=== PATIENT | female | born 1990 | race Two or more races ===

== ENCOUNTER 2017-05-15 01:19 | Emergency (ER) | payer MEDICAID ==
--- NOTE | 2017-05-15 01:43 | ED Physician Chart ---
Chief Complaint/HPI - Patient Information Date Seen:: 05/15/17 Time Seen:: 01:35 Chief Complaint:: Abdominal pain for 2 days. 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 Pain is characterized as crampy, intermittent and overall localized. No known precipitating, aggravating, or relieving factors. No fever. Pt has had intermittent N/V with vomitus consists of gastric content. No hematemesis. Last BM about 2 days ago which was normal in color/consistency. No hematochezia or melena. Pt denies any illicit drug use. Pt states she had previous marijuana use but has not had it for about 3 months. Denies ingestion of greasy/spicy food. No alcohol, caffeine, ASA, NSAID, or tobacco use. Allergies:: Allergies Allergy/AdvReac Type Severity Reaction Status Date / Time ketorolac tromethamine Allergy ITCHINESS Verified 07/22/16 03:42 [From Toradol] Vitals:: Vital Signs - 8 hr 05/15/17 01:20 Temp 98.3 F HR 120 RR 19 BP 147/107 O2 Sat % 95 Historian:: Patient Family MD/PCP:: Dr. Austin LMP:: 04/22/17 Review:: Nurse's Note Reviewed Review of Systems - Review of Systems General/Constitutional: No fever, No weight loss, No weakness, No diaphoresis, No edema, No loss of appetite Skin: No skin lesions, No rash, No bruising Head: No headache, No light-headedness Eyes: No loss of vision, No pain ENT: No earache, No nasal drainage, No sore throat, No tinnitus Neck: No neck pain, No swelling, No stiffness, No mass noted Cardio Vascular: No chest pain, No palpitations Pulmonary: No SOB, No cough, No wheezing GI: Nausea, Vomiting, No diarrhea, Pain, No melena, No hematochezia, No hematemesis G/U: Dysuria, No frequency, No hematuria Alteration Worker: No vaginal discharge, No abnormal vaginal bleed Musculoskeletal: Bone or joint pain Endocrine: No polyuria, No polydipsia Psychiatric: No prior psych history Hematopoietic: No bruising, No lymphadenopathy Allergic/Immuno: No urticaria, No angioedema Neurological: No syncope, No focal symptoms, No weakness, No paresthesia, No headache, No dizziness, No confusion Past Medical History - Past Medical History Past Medical History: No significant medical hx Family History: HTN (MGM), Cancer (MGM) Social History: Non Smoker, No Alcohol, No Drug Use, Single, Other (lives with her mother.) Surgical History: Cholecystectomy (laparoscopic cholecystectomy in 2010) Psychiatricy History: None Medication: None Family Medical History - Family Member Mother History Unknown: Yes Physical Exam - Physical Examination General/Constitutional: Awake, Well-developed, well-nourished, Alert, GCS 15, Non-toxic appearing, Ambulatory Other Gen/Cons comments:: Breathes comfortably and speaks clearly. Pt appears to be in distress due to abdominal pain. Head: Atraumatic Eyes: Lids, conjuctiva normal, PERRL, EOMI Other Eyes comments:: anicteric sclera. Skin: Nl inspection, No rash, No skin lesions, No ecchymosis, No lymphadenopathy ENMT: External ears, nose nl, Nasal exam nl, Oropharynx nl Neck: Nontender, Full ROM w/o pain, No nuchal rigidity, No mass, No stridor Respiratory: Nl effort/Exclusion, Clear to Auscultation, No Wheeze/Rhonchi/Rales Cardio Vascular: RRR ( with VR 92), No murmur, gallop, rubs GI: No organomegaly, No hernia, Normal BS's, Nondistended, No mass/bruits, No McBurney tenderness Other GI comments:: Tenderness at LUQ and epigastric region. No R/G. Negative Velasquez's, Tomi's, or Larson Fine's signs. : No CVA tenderness Other comments:: Pt declined pelvic and rectal exams despite indications, related benefits and risks have been explained. Pt states that she already had a full GI work up recently, including endoscopies. Pt prefers to be followed with PCP Dr. Austin for further evaluation/treatment. Extremities: No tenderness or effusion, Full ROM, normal strength in all extremities, No edema, Normal digits & nails Neuro/Psych: Alert/oriented (oriented x 3.), Normal gait, No focal deficits Labs/Radiology/EKG Results - Lab Results Results: Laboratory Tests 05/15/17 05/15/17 05/15/17 01:25 01:25 01:25 WBC RBC Hgb Hct MCV MCH MCHC Differential RDW Plt Count MPV Neutrophils % Lymphocytes % Monocytes % Eosinophils % Basophils % PT INR PTT (Actin FS) Sodium Potassium Chloride Carbon Dioxide Anion Gap BUN Creatinine Est GFR ( Amer) Est GFR (Non-Af Amer) BUN/Creatinine Ratio Glucose Calcium Total Bilirubin AST ALT Alkaline Phosphatase Total Protein Albumin Globulin Albumin/Globulin Ratio Amylase Lipase Urine Source RANDOM Urine Color YELLOW Urine Clarity CLEAR Urine pH 6.0 Ur Specific Rugby 1.020 Urine Protein NEGATIVE Urine Glucose (UA) NEGATIVE Urine Ketones NEGATIVE Urine Blood NEGATIVE Urine Nitrate NEGATIVE Urine Bilirubin NEGATIVE Urine Urobilinogen 0.2 Ur Leukocyte Esterase NEGATIVE Urine RBC 0-2 Urine WBC 0-2 Ur Epithelial Cells FEW Urine Bacteria FEW Urine Test NEGATIVE Urine Opiates Screen NEGATIVE Urine Methadone Screen NEGATIVE Ur Barbiturates Screen NEGATIVE Ur Tricyclics Screen NEGATIVE Ur Phencyclidine Scrn NEGATIVE Amphetamines Screen NEGATIVE U Methamphetamines Scrn NEGATIVE U Benzodiazepines Scrn NEGATIVE U Cocaine Metab Screen NEGATIVE U Cannabinoids Screen POSITIVE H 05/15/17 05/15/17 05/15/17 01:40 01:40 01:40 WBC 11.5 H D RBC 4.04 Hgb 12.8 Hct 36.8 D MCV 91.2 MCH 31.7 H MCHC Differential 34.8 RDW 13.7 Plt Count 214 MPV 8.8 Neutrophils % 52.4 Lymphocytes % 36.7 Monocytes % 8.6 Eosinophils % 1.5 Basophils % 0.8 PT 10.3 INR 0.99 PTT (Actin FS) 27.1 Sodium 133 L Potassium 3.7 Chloride 105 Carbon Dioxide 23.7 Anion Gap 8.0 BUN 17 Creatinine 0.7 Est GFR ( Amer) > 60.0 Est GFR (Non-Af Amer) > 60.0 BUN/Creatinine Ratio 24.3 Glucose 109 H Calcium 9.4 Total Bilirubin 0.3 AST 18 ALT 15 Alkaline Phosphatase 46 Total Protein 7.4 Albumin 4.4 Globulin 3.0 Albumin/Globulin Ratio 1.5 Amylase 42 Lipase 32 Urine Source Urine Color Urine Clarity Urine pH Ur Specific Rugby Urine Protein Urine Glucose (UA) Urine Ketones Urine Blood Urine Nitrate Urine Bilirubin Urine Urobilinogen Ur Leukocyte Esterase Urine RBC Urine WBC Ur Epithelial Cells Urine Bacteria Urine Test Urine Opiates Screen Urine Methadone Screen Ur Barbiturates Screen Ur Tricyclics Screen Ur Phencyclidine Scrn Amphetamines Screen U Methamphetamines Scrn U Benzodiazepines Scrn U Cocaine Metab Screen U Cannabinoids Screen - Radiology Results Results: CT abdomen and pelvis without contrast: No bowel obstruction. No appendicitis or other inflammatory changes of bowel. Pancreas is unremarkable. Prior cholecystectomy with expected biliary ectasia. No renal calculi. No hydronephrosis. No free air or free fluid. No other acute disease. Right ovarian 3.7 cm cystic lesion. Small adjacent free fluid in the pelvis may be from leakage or rupture. Official report per Dr. Abel Lopez, radiologist. ED Septic Shock - . Is Septic Shock (SBP<90, OR Lactate>4 mmol\L) present?: No - <6hrs of presentation: Vital Signs: Vital Signs - 8 hr 05/15/17 01:20 Temp 98.3 F HR 120 RR 19 BP 147/107 O2 Sat % 95 Reassessment (Disposition) - Reassessment Reassessment:: 0220 Pt has been repeatedly evaluated. Pt feels better and does not appear to be in distress. 0410 Pt has been observed for prolonged period. Pt remains comfortable without recurrent nausea/vomiting or abdominal pain. Lab and CT findings have been reviewed with pt. Management plan has been discussed. Pt requests to go home now and does not want further observation/management in hospital. Pt states that she will follow with PCP Dr. Austin tomorrow. Aftercare instructions have been given. Her sister Josselyn will drive pt home. Reassessment Condition:: Improved - Diagnosis Diagnosis:: Cannabinoid hyperemesis syndrome. Stable and currently asymptomatic. - Aftercare/Follow up Instructions Aftercare/Follow-Up Instructions:: Refer to Discharge Instructions Notes:: Bedrest for today. Pt has been advised to stop marijuana use and to enroll in a drug detox program as referred by PCP Dr. Austin. Clear liquid for now. Advance diet as tolerated starting later this afternoon. Nausea/vomiting/diarrhea instructions given. Abdominal pain instructions given. Drowsiness precautions given with the use of Dilaudid. May take Tylenol 500 mg tab one tab po q6h prn pain. F/U with PCP Dr. Austin in one day for recheck with repeat lab studies: CBC, CMP. Return to ER immediately if condition worsens or if any further questions/ problems. Medication Prescribed:: None - Patient Disposition Discharge/Transfer:: Home Time:: 04:25 Condition at Disposition:: Stable, Improved ED Discharge Plan - Patient Disposition Admit/Discharge/Transfer: PT DISCHARGED HOME Instructions: Nausea and Vomiting Additional Instructions: diagnosis: cannabinoid hyperemesis syndrome follow up with Dr. Norman SELLERS stop smoking marijuana have clear liquid diet until symptoms subside drink plenty of water to keep yourself hydrated
[2017-05-15] MEDS ORDERED: HYDROmorphone 1 mg/mL 1mL Syr ONE (01:45)
[2017-05-15 01:48] LABS: URINE BILIRUBIN NEGATIVE (NEGATIVE); URINE COLOR YELLOW; URINE GLUCOSE (UA) NEGATIVE (NEGATIVE); URINE KETONE NEGATIVE (NEGATIVE)
[2017-05-15 01:49] LABS: URINE BLOOD NEGATIVE (NEGATIVE); URINE PROTEIN NEGATIVE (NEGATIVE); URINE UROBILINOGEN 0.2 E.U./dL (0.2 - 1.0)
[2017-05-15] MEDS ORDERED: HYDROmorphone 1 mg/mL 1mL Syr IVP STA (01:49)
[2017-05-15 01:50] LABS: URINE BACTERIA FEW /hpf (NONE SEEN); URINE EPITHELIAL CELLS FEW /lpf (FEW); URINE RBC 0-2 /hpf (0-5); URINE WBC 0-2 /hpf (0-5)
[2017-05-15] MEDS ORDERED: Sodium Chloride 0.9% 1,000 ML IV ONE (01:50)
[2017-05-15 02:02] LABS: INR 0.99 (0.5-1.4); PROTHROMBIN TIME (TEST) 10.3 SECONDS (9.5-11.5)
[2017-05-15 02:03] LABS: % BASOPHILS 0.8 % (0.0-2.0); % EOSINOPHILS 1.5 % (0.0-5.0); % LYMPHOCYTES 36.7 % (20.0-50.0); % MONOCYTES 8.6 % (2.0-10.0); % NEUTROPHILS 52.4 % (40.0-80.0); HEMOGLOBIN 12.8 gm/dL (11.7-15.5); MEAN CELL VOLUME 91.2 fl (81-100); MEAN CORPUSCULAR HEMOGLOBIN 31.7 pg (27.0-31.0); MEAN CORPUSCULAR HGB CONC 34.8 pg (28.0-36.0); MEAN PLATELET VOLUME 8.8 fl; PLATELET COUNT 214 Th/cmm (150-400); RED BLOOD COUNT 4.04 Mil/cmm (3.80-5.10); RED CELL DISTRIBUTION WIDTH 13.7 % (11.5-20.0)
[2017-05-15 02:06] LABS: ALB/GLOB RATIO 1.5 (1.0-1.8); ALKALINE PHOSPHATASE 46 U/L (34-104); AMYLASE SERUM 42 U/L (29-103); BILIRUBIN,TOTAL 0.3 mg/dL (0.3-1.0); BUN - UREA NITROGEN 17 mg/dL (7-25); BUN/CREATININE RATIO 24.3; CALCIUM SERUM 9.4 mg/dL (8.6-10.3); CARBON DIOXIDE 23.7 mEq/L (21.0-31.0); CHLORIDE 105 mEq/L (98-107); CREATININE - SERUM 0.7 mg/dL (0.6-1.2); GLUCOSE 109 mg/dL (70-105); LIPASE 32 U/L (11-82); POTASSIUM SERUM 3.7 mEq/L (3.5-5.1); SGOT 18 U/L (13-39); SGPT/ALT 15 U/L (7-52); SODIUM SERUM 133 mEq/L (136-145)
[2017-05-15 02:07] LABS: HEMATOCRIT 36.8 % (35.0-45.0); WHITE BLOOD COUNT 11.5 Th/cmm (4.8-10.8)
[2017-05-15 02:21] LABS: AMPHETAMINE URINE NEGATIVE (NEGATIVE); BARBITURATES URINE NEGATIVE (NEGATIVE); METHADONE URINE NEGATIVE (NEGATIVE)
--- NOTE | 2017-05-15 08:57 | Diagnostic Imaging Report ---
CT scan abdomen and pelvis without intravenous contrast HISTORY: Pain Total DLP equals 374 CTDI equals 8.6 Axial sections were obtained from the xiphoid process down to the pubic symphysis. The liver exhibits a normal size and contour. No focal lesions. The spleen appears normal. Surgical clips are seen in the oscar hepatis region consistent with a prior cholecystectomy. No definite abnormality seen in the region of the pancreas. No focal renal lesions. No calculi. No hydronephrosis. The exam of the pelvis demonstrates an approximate 3.7 cm hypodense lesion within the right adnexal area with cystic characteristics. Small to moderate amount of free fluid also noted in the lower pelvis. Findings may be on a physiologic basis and should be correlated clinically and with the ovulation cycle. The appendix cannot be clearly visualized. IMPRESSION: 1. 3.7 cm right adnexal cyst along with a small to moderate amount of free fluid in the lower pelvis. The findings may be on a physiologic basis and should be correlated clinically and with the ovulation cycle. A follow-up exam would provide further assessment if needed.
== END 2017-05-15 04:20 | disposition home or self-care (01) ==
LOC: ER 01:19
DX: T40.7X1A Poisoning by cannabis (derivatives), accidental (unintentional), initial encounter (principal); R11.10 Vomiting, unspecified; Z90.49 Acquired absence of other specified parts of digestive tract; Y92.89 Other specified places as the place of occurrence of the external cause
CPT/HCPCS: 99285; 96361; 96374; 96375; 74176; 36415; 80307; 85025; 85610; 81001; 82150; 81025; 83690; 80053; J2405; J1170; J7030